=== PATIENT | male | born 1980 | race Caucasian/White ===

== ENCOUNTER 2016-08-01 10:05 | Emergency (ER) | payer OTHER ==
[~2016-08-01] VITALS: Ht 182.9 cm; Wt 84.1 kg
[2016-08-01 10:16] VITALS: BP 130/85; PULSE 109; O2SAT 95
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
[2016-08-01] MEDS ORDERED: Ondansetron 2 mg/mL 2 mL Inj IVPUSH ONE ×2 (11:10→12:15)
[2016-08-01] MEDS: HYDROmorphone 1 mg/mL Inj IVPUSH ONE ×2 (11:12→11:22)
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
[2016-08-01 11:19] VITALS: BP 124/94; PULSE 87; O2SAT 97
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
[2016-08-01] MEDS ORDERED: Haloperidol 5 mg/mL Inj IVPUSH ONE (12:30)
[2016-08-01 13:10] VITALS: BP 155/84; PULSE 61; RESP 14; O2SAT 95
[2016-08-01 14:28] VITALS: BP 119/70; PULSE 60; O2SAT 94
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
[2016-08-01 16:42] VITALS: BP 153/71; PULSE 71; RESP 17; O2SAT 96
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
[2016-08-01] MEDS ORDERED: IBUP-1827 PO (17:26)
[2016-08-01 18:02] VITALS: BP 132/70; PULSE 60; RESP 15; O2SAT 100
== END 2016-08-01 17:45 | disposition home or self-care (01) ==
LOC: EDBD 10:05 → SED 10:05 → EDUNIT# 10:05 → SED 17:45
DX: S12.191A Other nondisplaced fracture of second cervical vertebra, initial encounter for closed fracture (principal); S06.0X1A Concussion with loss of consciousness of 30 minutes or less, initial encounter; Y04.0XXA Assault by unarmed brawl or fight, initial encounter; S01.511A Laceration without foreign body of lip, initial encounter; M25.511 Pain in right shoulder; Y93.89 Activity, other specified; Y99.8 Other external cause status; Y92.410 Unspecified street and highway as the place of occurrence of the external cause; G89.29 Other chronic pain
CPT/HCPCS: 70450; 72020; 72125; 72141; 73030; 96374; 96375; 96376; 99285; J1170; J1200; J1630; J2405

== ENCOUNTER 2016-08-11 13:04 | Emergency (ER) | payer OTHER ==
[~2016-08-11] VITALS: Ht 182.9 cm; Wt 88.6 kg
[~2016-08-11 13:04] MED LIST: IBUP-1827 PO
[2016-08-11 13:11] VITALS: BP 133/82; PULSE 71; RESP 18; O2SAT 98
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
[2016-08-11] MEDS ORDERED: MECL-114 PO (14:39)
[2016-08-11] MEDS ORDERED: TRAZ-118 PO (14:40)
== END 2016-08-11 15:00 | disposition home or self-care (01) ==
LOC: SED 13:04
DX: S06.0X1D Concussion with loss of consciousness of 30 minutes or less, subsequent encounter (principal); Y09 Assault by unspecified means; Y93.89 Activity, other specified; Y92.89 Other specified places as the place of occurrence of the external cause; Y99.8 Other external cause status; M54.2 Cervicalgia